=== PATIENT | male | born 1945 | race Caucasian/White ===

== ENCOUNTER → 2018-12-14 08:25 | Outpatient (CLI) | payer MEDICARE ==
[2014-05-04 09:21] VITALS: BMI 31.9
[~2018-12-14 08:25] MED LIST: BAYER CHEWABLE81 MG PO; CO Q-10200 MG PO; COREG6.25 MG PO; FISH OIL 1,0001 CA1 PO; HYDROCODONE-APA1 TAB PO; LOPRESSOR25 MG PO; PLAVIX75 MG PO; PROBIOTIC1 EAC1 PO; ZESTORETIC 20-1 EACH PO; ZETIA10 MG PO; ZOCOR20 MG PO
== END | disposition home or self-care (01) ==
LOC: D.HCCARDIO 08:25
PROVIDERS: ATTEND Internal Medicine Cardiovascular Disease
DX: I25.10 Atherosclerotic heart disease of native coronary artery without angina pectoris (principal)

== ENCOUNTER 2018-12-28 10:43 | Outpatient (CLI) | payer MEDICARE ==
[~2018-12-28] VITALS: Ht 185.4 cm; Wt 104.1 kg
--- NOTE | ~2018-12-28 | HEMODYNAMI ---
PATIENT:MARC BLACKMAN MEDICAL RECORD: [id number] : 47 LOCATION:[facility] ADMISSION DATE: 12/28/18 Generatedon:12/28/201815:05 Patient name: MARC BLACKMAN Patient #: [id number] SSN: : 1945 Date of study: 12/28/2018 Page: Of Hemodynamic Procedure Report Patient Data Patient Demographics Procedure consent was obtained First Name: MARC Gender: Male Last Name: YEHUDA : 1945 [facility] Initial: TOM Age: 73 year(s) Patient #: [id number] Race: Unknown Additional ID: [id number] Contact details [address]: [address] [place] [address] State: [place] City: [place] Zip code: [address] Past Medical History Performed procedures and imaging results Date Procedure Procedure Results Comments Stress testing Positive->Intermediate with SPECT MPI risk History of disease Date Diagnosis Comments CAD Allergies Allergen Reaction Date Comments Reported Other allergy 12/28/2018 LISINOPRIL Admission Admission Data Admission Date: 12/28/2018 Admission Time: 10:43 Arrival Date: 12/28/2018 Arrival Time: 0:00 Height (in.): 72.83 BSA: 2.28 (m2) Height (cm.): 185 BMI: 30.39 (kg/m2) Weight (lbs.): 229.28 Weight (kg.): 104 Lab Results Lab Result Date: 12/28/2018 Lab Result Time: 0:00 Biochemistry Name Units Result Min Max BUN mg/dl 12 --(-*--)-- 7 18 Creatinine mg/dl 1 --(--*-)-- 0.6 1.3 eGFR ml/min 78 *-(----)-- 90 120 NONAFRICAN CBC Name Units Result Min Max Hematocrit % 45.7 --(-*--)-- 42 54 Hemoglobin g/dl 15.9 --(--*-)-- 13.5 17.5 Procedure Procedure Types Cath Procedure Diagnostic Procedure [facility] w/Coronaries Sedation Charges Moderate Sedation up to 30 minutes PCI Procedure Coronary Stent Coronary Stent Initial Procedure Description Procedure Date Procedure Date: 12/28/2018 Procedure Start Time: 14:28 Procedure End Time: 15:02 Procedure Staff Name Function Jaxon Benavides MD Performing Physician Fam Simmons RT Gyroscope Repairer MichelleXikota Devices RT Monitor Carlos Ulloa RN Nurse Travis Munoz RT Scrub Krystal Fonseca RT Scrub Indication CAD Procedure Data Cath Procedure Fluoroscopy Diagnostic fluoroscopy Total fluoroscopy Time: 6 time: 6 min min Diagnostic fluoroscopy Total fluoroscopy dose: 924 dose: 924 mGy mGy Contrast Material Contrast Material Type Amount (ml) Isovue 300 136 Entry Location Entry Primary Successful Side Size Upsize Upsize Entry Closure Succes sful Closure Location (Fr) 1 (Fr) 2 (Fr) Remarks Device Remarks Femoral Right 5 Fr 6 Fr Exoseal artery Short Estimated blood loss: 10 ml Diagnostic catheters Device Type Used For End Catheter Placement MULTIPACK JL 4.0 5Fr Procedure catheter MULTIPACK 3DRC 5Fr Procedure catheter MULTIPACK Pigtail 5 Fr Procedure catheter Procedure Complications No complications Procedure Medications Medication Administration Route Dosage Oxygen etCO2 Nasal cannula 2 l/min Lidocaine 2% added to field 20 Heparin Flush Bag added to field 2 bags (1000units/500ml NS) 0.9% NaCl I.V. 100 ml/hr Versed I.V. 2 mg Fentanyl I.V. 50 mcg Versed I.V. 1 mg Fentanyl I.V. 50 mcg Versed I.V. 1 mg Heparin Bolus I.V. 26783 units Hemodynamics Rest BSA: 2.28 (m2) HGB: 15.9 (g/dl) O2 Consumption: Estimated: 255.84 (ml/min) O2 Co nsumption indexed: Estimated:112.21 (ml/min/m) Heart Rate: 62 (bpm) Pressure Samples Time Site Value (mmHg) Purpose Heart Use Rate(bpm) 14:39 LV 72/2,-1 Snapshot 70 Gradients Valve Time Site Site Mean SEP/DFP Peak To Heart Use 1 2 (mmHg) (sec/min) Peak Rate (mmHg) (bpm) Aortic 14:40 LV AO 64 Snapshots Pre Cath Intra NCS Post Cath Vital Signs Time Heart Resp SPO2 etCO2 NIBP (mmHg) Rhythm Pain Sedation Rate (ipm) (%) (mmHg) Status Level (bpm) 14:09:59 52 16 100 0 151/81(108) NSR 0 (11) 10(A) , No pain 14:14:25 62 34 99 29.3 133/60(106) NSR 0 (11) 10(A) , No pain 14:18:45 59 16 96 0 122/71(109) NSR 0 (11) 10(A) , No pain 14:22:57 63 16 95 0.7 104/70(86) NSR 0 (11) 10(A) , No pain 14:27:56 64 16 95 45.2 116/69(95) NSR 0 (11) 10(A) , No pain 14:32:12 65 15 95 44.4 112/66(89) NSR 0 (11) 9(A) , No pain 14:36:30 67 15 94 46.7 114/61(82) NSR 0 (11) 9(A) , No pain 14:40:47 64 16 95 42.9 108/67(91) NSR 0 (11) 9(A) , No pain 14:45:00 63 16 92 39.9 112/63(76) NSR 0 (11) 10(A) , No pain 14:49:16 72 18 92 40.6 107/58(78) NSR 0 (11) 9(A) , No pain 14:53:32 68 15 95 39.9 113/59(102) NSR 0 (11) 9(A) , No pain 14:57:44 70 16 98 38.4 107/64(88) NSR 0 (11) 10(A) , No pain 15:02:01 71 19 95 37.6 123/63(106) NSR 0 (11) 10(A) , No pain Medications Time Medication Route Dose Verified Delivered Reason Note s Effectiveness by by 14:12:25 Oxygen etCO2 2 Jaxon Buffie used for Nasal l/min Kennedy Ulloa RN procedure cannula 14:12:33 Lidocaine 2% added 20ml Jaxon Jaxon for local to vial Kennedy Benavides MD anesthetic field 14:12:39 Heparin Flush added 2 bags Jaxon Jaxon used for Bag to Kennedy Benavides MD procedure (1000units/500ml field NS) 14:12:47 0.9% NaCl I.V. 100 Jaxon Buffie Per physician ml/hr Kennedy Ulloa RN 14:25:00 Versed I.V. 2 mg Jaxon Buffie for sedation Kennedy Ulloa RN 14:25:05 Fentanyl I.V. 50 mcg Jaxon Buffie for sedation Kennedy Ulloa RN 14:30:14 Versed I.V. 1 mg Jaxon Buffie for sedation Kennedy Ulloa RN 14:30:18 Fentanyl I.V. 50 mcg Jxaon Buffie for sedation Kennedy Ulloa RN 14:36:24 Versed I.V. 1 mg Jaxon Buffie for sedation Kennedy Ulloa RN 14:45:50 Heparin Bolus I.V. 10,000 Jaxon Buffie for units Kennedy Ulloa RN anticoagulation Procedure Log Time Note 13:51:01 Informed consent obtained and on chart 13:51:24 Fam Simmons RT(R) sent for patient. Start room use. 13:51:26 Procedure Status Elective Heart Cath (OP). 13:51:28 Time tracking: Regular hours (M-F 7:00 - 5:00) 13:51:33 Plan of Care:Hemodynamics will remain stable., Cardiac rhythm will remain stable., Comfort level will be maintained., Respiratory function will remain adequate., Patient/ family verbilizes understanding of procedure., Procedure tolerated without complication., Recovers from procedure without complications.. 13:52:03 H&P Date Dictated: 12/06/2018 Within 30 days and on chart., H&P Addendum completed by physician on day of procedure. (MUST COMPLETE FOR ALL OUTPATIENTS). 13:53:13 Patient allergic to Other allergyLISINOPRIL 13:53:57 Lab Result : BUN 12 mg/dl 13:53:57 Lab Result : Creatinine 1 mg/dl 13:53:57 Lab Result : eGFR NONAFRICAN 78 ml/min 13:53:57 Lab Result : Hemoglobin 15.9 g/dl 13:53:57 Lab Result : Hematocrit 45.7 % 13:59:32 Risk of Mortality: .1 13:59:35 Risk of blood transfusion: .1 13:59:38 Risk of MARANDA: .1 14:00:02 ACC Patient presents with Stable Angina CCS Anginal Class 3--Marked limitation of physical activity, angina occurs with ordinary activity.. 14:00:09 ACCPatient has been prescribed/administered the following anti-anginal medication within the last 2 weeks: ARB 14:00:29 Patient Weight : 229.28 lbs 14:00:35 Patient Height : 72.83 inches 14:00:57 Arrival Date: 12/28/2018 12:00:00 AM 14:03:06 Indication : CAD 14:03:40 Stress Test: yes; normal ANTERIOR, APICAL, INFERIOR 14:04:02 Patient received from Pre/Post Procedure Room to CCL 1 Alert and oriented. Tansferred to table in Supine position. 14:04:04 Warm blankets applied, and belinda hugger turned on for patient comfort. 14:04:04 Correct patient and procedure confirmed by team. 14:04:04 ECG and BP/O2 sat monitors applied to patient. 14:08:40 Vital chart was started 14:08:42 Baseline sample Acquired. 14:08:48 Rhythm: sinus rhythm 14:08:52 Full Disclosure recording started 14:08:53 Pre-procedure instructions explained to patient. 14:08:54 Pre-op teaching completed and patient verbalized understanding. 14:08:55 Family in patients room. 14:08:57 Patient NPO since Midnight. 14:08:59 Is the patient allergic to Iodine/contrast media? No. 14:09:00 Is patient on blood thinner?Yes 14:09:03 ACC The patient was administered the following blood thiners within the last 24 hours: ACCPlavix 14:09:06 Patient diabetic? No. 14:09:11 Previous problem with sedation/anesthesia? No ? 14:09:11 Snore? Yes 14:09:13 Sleep apnea? No 14:09:15 Deviated septum? No 14:09:15 Opens mouth fully? Yes 14:09:16 Sticks out tongue? Yes 14:09:18 Airway obstruction? No ? 14:09:47 Dentures? Yes IN 14:10:17 Pre procedure: right dorsailis pedis pulse 1+ Palpable, but thready & weak; easily obliterated 14:10:21 Modified Jason's test Ulnar > 7 seconds. 14:10:42 FAILED ALLENS 14:10:46 Patient pain scale 0/10 ?. 14:10:55 IV patent on arrival in left wrist with 0.9% NaCl at KVO. 14:10:57 Lab results completed and on chart. 14:11:04 Right groin area was prepped with chlora-prep and draped in sterile fashion 14:11:06 Alarms reviewed by R. N. 14:11:07 Sharps counted by scrub and verified by R.N. 14:11:11 Use device set Femoral Dx 14:11:14 ACIST Hand Control (04239) opened to sterile field. 14:11:14 ACIST Manifold (93438) opened to sterile field. 14:11:16 ACIST Syringe (79035) opened to sterile field. 14:11:16 Bag Decanter (2002S) opened to sterile field. 14:11:16 Medline Cath Pack ([id number]) opened to sterile field. 14:11:18 Tegaderm 4 x 4 (1626W) opened to sterile field. 14:11:20 DIAGNOSTIC Multipack 5Fr catheter set (FP9865) opened to sterile field. 14:11:21 SHEATH 5FR Custer (GTC193) opened to sterile field. 14:11:21 EMERALD Guide Wire (638-356) opened to sterile field. 14:12:25 Oxygen 2 l/min etCO2 Nasal cannula was administered by Carlos Ulloa RN; used for procedure; Verbal order read back and verified. 14:12:33 Lidocaine 2% 20ml vial added to field was administered by Jaxon Benavides MD; for local anesthetic; Verbal order read back and verified. 14:12:39 Heparin Flush Bag (1000units/500ml NS) 2 bags added to field was administered by Jaxon Benavides MD; used for procedure; Verbal order read back and verified. 14:12:47 0.9% NaCl 100 ml/hr I.V. was administered by Carlos Ulloa RN; Per physician; Verbal order read back and verified. 14:16:15 Baseline sample Acquired. 14:22:52 Zero performed for pressure channel P1 14:24:27 --------ALL STOP TIME OUT------ 14:24:27 Final Timeout: patient, procedure, and site verified with staff and physician. All members of the team are in agreement. 14:24:28 Right groin site verified by team. 14:24:32 Fire Safety Assessment: A--An alcohol-based skin anteseptic being used preoperatively., C--Open oxygen or nitrous oxide is being used., D--An ESU, laser, or fiber-optic light is being used. 14:24:36 Physical assessment completed. ASA score P 2 - A patient with mild systemic disease as per Jaxon Benavides MD. 14:24:40 2) 60-89 Mildly reduced kidney function, and other findings (as for stage 1) point to kidney disease. 14:24:44 Maximum allowable contrast dose (3.7 X eGFR X 0.75)216 ml. 14:24:47 Sedation plan: IV Moderate Sedation Medication:Versed, Fentanyl 14:25:00 Versed 2 mg I.V. was administered by Carlos Ulloa RN; for sedation; Verbal order read back and verified. 14:25:05 Fentanyl 50 mcg I.V. was administered by Carlos Ulloa RN; for sedation; Verbal order read back and verified. 14:28:14 Procedure started. 14:28:42 Local anesthetic to right femoral artery with Lidocaine 2% by Jaxon Benavides MD.INITIAL ACCESS ONLY 14:30:14 Versed 1 mg I.V. was administered by Carlos Ulloa RN; for sedation; Verbal order read back and verified. 14:30:18 Fentanyl 50 mcg I.V. was administered by Carlos Ulloa RN; for sedation; Verbal order read back and verified. 14:30:34 A 5 Fr sheath was inserted into the Right Femoral artery 14:31:21 A MULTIPACK JL 4.0 5Fr catheter was advanced over the wire and used for Procedure. 14:33:36 LCA angiography performed. 14:34:11 Catheter exchanged over wire. 14:36:24 Versed 1 mg I.V. was administered by Carlos Ulloa RN; for sedation; Verbal order read back and verified. 14:36:46 A MULTIPACK 3DRC 5Fr catheter was advanced over the wire and used for Procedure. 14:36:50 RCA angiography performed. 14:37:12 Catheter exchanged over wire. 14:37:26 A MULTIPACK Pigtail 5 Fr catheter was advanced over the wire and used for Procedure. 14:38:03 LV gram done using YUN 14:38:05 Injector settings: Ml/sec: 10, Volume: 20, 14:39:42 LV hemodynamics recorded. 14:40:03 EF : 35 % 14:40:14 Catheter exchanged over wire. 14:40:19 GUIDE 6FR JR 4.0 catheter ([id number]) opened to sterile field. 14:40:19 INFLATOR Merit BasixCompak (DA0167) opened to sterile field. 14:40:20 BMW 300cm [place] 2 J wire ([id number]) opened to sterile field. 14:40:20 SHEATH 6FR Custer (MJH422) opened to sterile field. 14:40:39 TUBING High Pressure Extension Tubing (Benavides) ([id number]) opened to sterile field. 14:42:41 Proceeding to intervention. 14:42:47 Sheath upsized to a 6 Fr Short. 14:44:22 6 Fr JR 4 guide catheter was inserted over the wire 14:45:50 Heparin Bolus 10,000 units I.V. was administered by Carlos Ulloa RN; for anticoagulation; Verbal order read back and verified. 14:46:54 BMW 300 wire advanced. 14:47:32 Wire advanced across lesion. 14:48:50 Pre PCI Site: [place] pRCA has 85% stenosis. 14:52:44 Place stent Inflation Number: 1 A COBRA RX 3.5 X 24 Stent was prepped and advanced across the Prox RCA . The stent was deployed at 13 BRIANNA for 0:00 (min:sec) . 14:53:21 Stent catheter was removed intact over wire. 14:53:22 Wire removed. 14:53:22 Guide catheter removed. 14:54:04 EXOSEAL 6Fr (EX600) opened to sterile field. 14:54:18 Sheath removed intact; hemostasis achieved with Exoseal to the Right Femoral artery. 14:55:15 Procedure ended.(Physican Out) 14:56:09 Fluoroscopy time 06.00 minutes. 14:56:13 Fluoroscopy dose: 924 mGy 14:56:13 Flurop Dose total: 924 14:56:22 Dose Area Product 85581 mGy/cm. 14:56:26 Contrast amount:Isovue 300 136ml. 14:56:30 Maximum allowable dose exceeded? No. 14:56:31 Sharps counted by scrub and verified by R.N. 14:56:35 Post-op/insertion site Right Femoral artery dressed using a 4 x 4 and Tegaderm. 14:56:39 Post-procedure physical assessment completed. ASA score P 2 - A patient with mild systemic disease as per Jaxon Benavides MD. 14:56:45 Post procedure rhythm: sinus rhythm 14:56:47 Estimated blood loss: 10 ml 14:56:51 ACT drawn and resulted at >400 seconds. (normal therapeutic range 180-240 seconds). 14:57:38 Post procedure instruction explained to patient.Patient verbalizes understanding. 14:57:39 Patient needs reinforcement of post procedure teaching. 14:58:00 Procedure type changed to Cath procedure, Diagnostic procedure, LHC, [facility] w/Coronaries, Sedation Charges, Moderate Sedation up to 30 minutes, PCI procedure, Coronary Stent, Coronary Stent Initial 14:58:25 Procedure and supply charges have been captured, reviewed, submitted and are correct. 14:58:38 Procedure Complication : No complications 15:01:55 Vital chart was stopped 15:01:58 [facility] Findings: MVD- PCI performed (see procedure note) 15:02:01 Operative report dictated upon procedure completion. 15:02:02 See physician's report for complete and final results. 15:02:04 Report given to Pre/Post Procedure Room. 15:02:07 Patient transfered to Pre/Post Procedure Room with Bed. 15:02:09 Procedure ended. 15:02:09 Full Disclosure recording stopped 15:02:18 ACC-PCI Only Patient was given prescriptions, or instructed by Jaxon Benavides MD to start/continue the following medications upon discharge: Plavix 15:02:20 End room use (Document Last) 15:04:25 End room use (Document Last) 15:04:43 End room use (Document Last) Intervention Summary Intervention Notes Time ActionType Lesion and Equipment Action# Pressure Duration Attributes Used 14:52:44 Place stent Prox RCA COBRA RX 1 13 00:00 3.5 X 24 Stent Device Usage Item Name Manufacture Quantity Catalog Hospital Part Current Minimal Lot# / Number Charge Number Stock Stock Serial# Code ACIST Hand Acist 1 95190 999484 567064 042427 5 Control Medical (59025) Systems Inc ACIST Manifold Acist 1 08203 593590 361192 729844 5 (30438) Medical Systems Inc ACIST Syringe Acist 1 04826 796793 220236 256199 20 (47646) Medical Systems Inc Bag Decanter Microtek 1 873751 79344 271379 5 (2002S) VideoClix. Medline Cath Medline 1 [id number] 724131 42783 117149 5 Pack ([id number]) Tegaderm 4 x 4 3M 1 1626W 134326 216880 546224 5 (1626W) DIAGNOSTIC Cardinal 1 DR2829 301174 53334 939174 30 Multipack 5Fr Health catheter set (LQ2837) SHEATH 5FR Terumo 1 QTI958 870747 282695 189923 5 Custer (VIZ398) EMERALD Guide Cardinal 1 502-455 910284 937947 225926 5 Wire (502-455) Health MULTIPACK JL Cardinal 1 761934 5 4.0 5Fr Health catheter MULTIPACK 3DRC Cardinal 1 675778 5 5Fr catheter Health MULTIPACK Cardinal 1 787205 5 Pigtail 5 Fr Health catheter GUIDE 6FR JR Medtronic 1 [id number] 702206 38807 814212 1 4.0 catheter ([id number]) INFLATOR Merit Merit 1 MU5961 687921 350305 831661 15 [place] TherapeuticsSt. [facility]'s HospitalGremln Medical (LW7100) BMW 300cm Parra 1 [id number] 988950 404716 044046 5 [place]lev[place] 2 J Vascular wire ([id number]) SHEATH 6FR Terumo 1 PBO812 064938 309909 256197 40 Custer (YXS833) TUBING High Merit 1 [id number] 288937 58577 183649 10 Pressure Medical Extension Tubing (Kennedy) ([id number]) COBRA RX 3.5 X Celonova 1 046-85-47890 239371 [id number] 9872280 8 [id number] 24 stent Biosciences ([id number]) EXOSEAL 6Fr Cardinal 1 EX600 236367 494175 574418 10 (EX600) Health Signature Audit [place] Stage Time Signature Unsigned Intra-Procedure 12/28/2018 Michelle Otoole 3:04:25 PM RT(R) Intra-Procedure 12/28/2018 Carlos Ulloa RN 3:04:43 PM Intra-Procedure 12/28/2018 Jaxon Benavides MD 3:05:17 [place] [address]
[~2018-12-28 10:43] MED LIST changes: -COREG6.25 MG PO; -PLAVIX75 MG PO; -ZETIA10 MG PO
[2018-12-28] MEDS ORDERED: ZETIA10 MG PO (11:11)
[2018-12-28] MEDS ORDERED: PLAVIX75 MG PO (11:11)
[2018-12-28] MEDS ORDERED: COREG6.25 MG PO (11:11)
[2018-12-28 11:31] VITALS: BP 155/48; Ht 185.4 cm; Wt 104.1 kg
[2018-12-28 11:37] LABS: BASOPHILS 0.7 % (0-2); EOSINOPHILS 3.7 % (0-7); HEMATOCRIT 45.7 % (42.0-54.0); HEMOGLOBIN 15.9 g/dL (13.5-17.5); IMMATURE GRANULOCYTES 0.3 % (0-5); LYMPHOCYTES 30.9 % (15-50); MCH 31.9 pg (26.0-34.0); MCHC 34.8 g/dL (31.0-37.0); MCV 91.8 fL (80.0-100.0); MEAN PLATELET VOLUME 9.8 fL (7.4-10.4); MONOCYTES 8.2 % (2-11); NEUTROPHILS 56.2 % (40-80); PLATELET COUNT 244 10x3/uL (130-400); RBC 4.98 10x6/uL (4.20-6.10); RDW 12.6 % (11.5-14.5); WBC 9.7 10x3/uL (4.8-10.8)
[2018-12-28 11:54] LABS: CALC OSMOLALITY 282 mosm/kg (275-300); CALCIUM 9.3 mg/dL (8.5-10.1); CARBON DIOXIDE 30.5 mmol/L (21.0-32.0); CHLORIDE - SERUM 104 mmol/L (98-107); GLUCOSE 99 mg/dL (74-106); POTASSIUM - SERUM 4.5 mmol/L (3.5-5.1); SODIUM 142 mmol/L (136-145); UREA NITROGEN 12 mg/dL (7-18); eGFR NON AFRICAN AMERICAN 78 mL/min (90-120)
[2018-12-28 12:01] LABS: CHOL - HDL RATIO 2.2 ratio (2.3-4.9)
--- NOTE | 2018-12-28 15:15 | NUR ---
REC SUPINE ON STRETCHER TO CL04. MONITORING INITIATED. SEE ASSESSMENT.
--- NOTE | 2018-12-28 15:30 | NUR ---
R GROIN SOFT, NO BLEEDING/HEMATOMA. PPP. VSS. AND SISTER AT BEDSIDE.
--- NOTE | 2018-12-28 15:45 | NUR ---
R GROIN SOFT, NO BLEEDING OR HEMATOMA. PPP. VSS. /SISTER AT BEDSIDE.
--- NOTE | 2018-12-28 16:00 | NUR ---
R GROIN SOFT, NO HEMATOMA/BLEEDING. PPP. VSS. AND SISTER AT BEDSIDE.
--- NOTE | 2018-12-28 16:45 | NUR ---
R GROIN SOFT, NO BLEEDING OR HEMATOMA. AT BEDSIDE, QUESTIONS ANSWERED. VSS, PPP. NO COMPLAINTS.
--- NOTE | 2018-12-28 17:15 | NUR ---
R GROIN SOFT, PPP. NO BLEEDING OR HEMATOMA. C/O BACK PAIN. SLIGHTLY RAISED KNEES WITH BED, RELIEVED DISCOMFORT. , SISTERS AT BEDSIDE, CONT TO MONITOR.
--- NOTE | 2018-12-28 17:46 | NUR ---
R GROIN SOFT, TEGADERM W 4X4 REMAINS CDI TO R GROIN SITE. NO BLEEDING OR HEMATOMA. PPP, VSS. , SISTERS AT BEDSIDE.
--- NOTE | 2018-12-28 18:00 | NUR ---
R GROIN SOFT, DRESSING CDI. NO BLEEDING OR HEMATOMA. ASSISTED TO SITTING POSITION BY RAISING HOB. HAND HYGEINE PROVIDED W WARM DAMP WASHCLOTH. SANDWICH PROVIDED. AT BEDSIDE, DENIES NEED FOR ASSISTANCE.
--- NOTE | 2018-12-28 18:14 | NUR ---
R GROIN SOFT, DRESSING CDI, NO BLEEDING OR HEMATOMA AFTER SITTING UP X 15 MINUTES TO EAT. PPP. VSS. DENIES NEEDS.
--- NOTE | 2018-12-28 18:50 | NUR ---
MONITORING DC, IV REMOVED W TIP INTACT. ASSISTED WALK TO RESTROOM.
--- NOTE | 2018-12-28 18:59 | NUR ---
R GROIN SOFT, DRESSING CDI. DC INSTRUCTIONS REVIEWED W PT AND , INCLUDING F/U APPTS AND MEDICATIONS. PT DRESSING W ASSIST.
--- NOTE | 2018-12-28 19:16 | NUR ---
DC HOME VIA PRIVATE CAR, BY WHEELCHAIR. ALL BELONGINGS WITH PATIENT.
== END 2018-12-28 19:13 ==
LOC: D.CATH 10:43
PROVIDERS: ATTEND Internal Medicine Cardiovascular Disease
DX: I25.110 Atherosclerotic heart disease of native coronary artery with unstable angina pectoris (principal); R94.30 Abnormal result of cardiovascular function study, unspecified